=== PATIENT | female | born 1950 | race Caucasian/White ===

== ENCOUNTER 2017-06-04 12:52 | Emergency (ER) | payer OTHER, BC ==
[~2017-06-04] VITALS: Ht 157.5 cm; Wt 59.0 kg
--- NOTE | ~2017-06-04 | EKG ---
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
[~2017-06-04 12:52] MED LIST: ESTROGEN/METHYL1 TA1 PO; HTN MED; LISINOPRIL5 MG PO; LORAZEPAM 1 MG T1 M1 PO; NAPROSYN500 MG PO; NORVASC 5 MG TAB5 MG PO; NORVASC PO; OXYBUTYNIN 5 MG5 M2 PO; PERCOCET 5-3251 EACH PO; PREDNISONE 20 M20 M1 PO; SANCTURA XR60 M1 PO; SEROQUEL 100 M100 M2 PER TUBE; SEROQUEL400 MG PO; SYNTHROID PO; SYNTHROID100 MCG PO; VISTARIL 25 MG25 M1 PO; XANAX XR1 MG PO; XANAX1 MG PO; [UNRECOGNIZED DRUG - OTHER] PO
[2017-06-04] MEDS ORDERED: FLEXERIL PO (14:37)
[2017-06-04 21:39] VITALS: BP 133/82
== END 2017-06-04 14:40 | disposition home or self-care (01) ==
LOC: ER 12:52
DX: M25.551 Pain in right hip (principal); M79.651 Pain in right thigh; I10 Essential (primary) hypertension; M79.7 Fibromyalgia; E03.9 Hypothyroidism, unspecified; F31.9 Bipolar disorder, unspecified; K58.9 Irritable bowel syndrome, unspecified; Z90.710 Acquired absence of both cervix and uterus; Z91.5 Personal history of self-harm; Z88.8 Allergy status to other drugs, medicaments and biological substances

== ENCOUNTER 2020-03-25 11:47 | Emergency (ER) | payer OTHER, BC ==
[~2020-03-25] VITALS: Ht 157.5 cm; Wt 70.3 kg
[~2020-03-25 11:47] MED LIST changes: +FLEXERIL PO
[2020-03-25] MEDS ORDERED: OXYBUTYNIN CHLO10 MG PO (11:57)
[2020-03-25] MEDS ORDERED: LINZESS290 MCG PO (11:57)
[2020-03-25] MEDS ORDERED: ALPRAZOLAM1 MG PO (11:58)
[2020-03-25] MEDS ORDERED: QUETIAPINE FUM400 MG PO (11:58)
[2020-03-25] MEDS ORDERED: SYNTHROID50 MCG PO (11:58)
[2020-03-25] MEDS ORDERED: MELOXICAM15 MG PO (11:59)
[2020-03-25] MEDS ORDERED: TROSPIUM CHLORI60 MG PO (11:59)
[2020-03-25 13:26] LABS: ABSOLUTE NEUTROPHILS 10.2 thou/uL (1.4-8.2); BASOPHILS 0.1 % (0.0-2.0); EOSINOPHILS 1.7 % (0.0-3.0); HEMATOCRIT 41.3 % (37.0-47.0); HEMOGLOBIN 13.5 gm/dL (12.0-15.0); LYMPHOCYTES 11.1 % (24.0-44.0); MCH 31.3 pg (26.0-34.0); MCHC 32.6 g/dL (28.0-37.0); MCV 96.1 fL (80.0-100.0); PLATELET COUNT 253 thou/uL (150-400); POLYS 80.1 % (36.0-66.0); RDW 13.5 % (10.5-14.5); WBC 12.7 thou/uL (4.0-11.0)
[2020-03-25 13:27] LABS: URINE BILIRUBIN NEGATIVE (Negative); URINE BLOOD TRACE (Negative); URINE CLARITY CLEAR; URINE COLOR YELLOW; URINE GLUCOSE-RANDOM* NEGATIVE (Negative); URINE KETONES NEGATIVE (Negative); URINE LEUKOCYTES-REFLEX TRACE (Negative); URINE NITRITE-REFLEX NEGATIVE (Negative); URINE PROTEIN (DIPSTICK) NEGATIVE (Negative); URINE SPECIFIC GRAVITY >= 1.030 (1.005-1.035); URINE UROBILINOGEN 0.2 E.U./dl (0.2-1.0)
[2020-03-25 13:30] LABS: ANION GAP 9 mmol/L (7-16); BUN 16 mg/dL (7-18); CALCIUM 8.3 mg/dL (8.5-10.1); CHLORIDE 105 mmol/L (98-107); CO2 26 mmol/L (21-32); GLUCOSE 103 mg/dL (74-106); POTASSIUM 4.2 mmol/L (3.5-5.1); SODIUM 140 mmol/L (136-145)
[2020-03-25 13:40] LABS: ALBUMIN 3.2 g/dL (3.4-5.0); LIPASE 257 U/L (73-393); SGOT 19 U/L (15-37); SGPT 15 U/L (30-65); TOTAL BILIRUBIN 0.4 mg/dL (0.2-1.0); TOTAL PROTEIN 6.7 g/dL (6.4-8.2); TROPONIN-I <0.06 ng/mL (<0.06)
[2020-03-25] MEDS ORDERED: ONDANSETRON HCL4 M2 PO (14:16)
[2020-03-25] MEDS ORDERED: ZPAK PO (14:16)
[2020-03-25] MEDS ORDERED: NORCO 5-325 TA1 EAC2 PO (14:16)
[2020-03-25 14:48] VITALS: BP 111/63
--- NOTE | 2020-03-27 07:44 | EKG ---
[facility] [place] [address] ELECTROCARDIOGRAM REPORT Name: ELLA KHAN Room #: [facility]#: [id number] Admission: 03/25/20 Attend Phys: Discharge: 03/25/20 Date of : 54 Report #: [id number] THIS REPORT FOR: cc: FAM - Family physician unknown FAM - Family physician unknown Stanislav Conklin MD [facility] THIS REPORT FOR: //name// [facility] ED Test Date: 2020-03-25 Test Time: 13:19:48 Pat Name: ELLA KHAN Department: Room: Gender: Client Success Director: no : 1950 Requested By: Delores Altamirano Order Number: [id number] MD: Stanislav Conklin Measurements Intervals [place] Rate: 81 P: 59 [place]: 141 QRS: -11 QRSD: 104 T: 12 QT: 374 QTc: 434 Interpretive Statements Sinus rhythm Normal tracing Compared to ECG 06/04/2017 13:02:01 No significant changes Electronically Signed On 03-27-2020 7:44:22 BLANKET WEAVER by Stanislav Conklin [email or web address] <ELECTRONICALLY SIGNED> By: Stanislav Conklin MD, FAC 03/27/20 0744 1319 Stanislav Conklin MD, FAC /EPI
== END 2020-03-25 14:59 | disposition home or self-care (01) ==
LOC: ER 11:47
PROVIDERS: Physician Assistant
DX: J18.9 Pneumonia, unspecified organism (principal); Z20.828 Contact with and (suspected) exposure to other viral communicable diseases; R11.2 Nausea with vomiting, unspecified; R19.7 Diarrhea, unspecified; I10 Essential (primary) hypertension; M79.7 Fibromyalgia; E03.9 Hypothyroidism, unspecified; F31.9 Bipolar disorder, unspecified; Z90.711 Acquired absence of uterus with remaining cervical stump; Z79.899 Other long term (current) drug therapy; Z88.5 Allergy status to narcotic agent; Z88.8 Allergy status to other drugs, medicaments and biological substances

== ENCOUNTER 2020-04-05 21:49 | Emergency (ER) | payer OTHER, BC ==
[~2020-04-05] VITALS: Ht 157.5 cm; Wt 70.3 kg
[~2020-04-05 21:49] MED LIST changes: +ALPRAZOLAM1 MG PO; +LINZESS290 MCG PO; +MELOXICAM15 MG PO; +NORCO 5-325 TA1 EAC2 PO; +ONDANSETRON HCL4 M2 PO; +OXYBUTYNIN CHLO10 MG PO; +QUETIAPINE FUM400 MG PO; +SYNTHROID50 MCG PO; +TROSPIUM CHLORI60 MG PO; +ZPAK PO
[2020-04-05] MEDS ORDERED: PRINIVIL10 MG PO (22:11)
[2020-04-05 22:47] LABS: URINE BILIRUBIN NEGATIVE (Negative); URINE BLOOD 1+ (Negative); URINE CLARITY CLEAR; URINE COLOR YELLOW; URINE GLUCOSE-RANDOM* NEGATIVE (Negative); URINE KETONES NEGATIVE (Negative); URINE LEUKOCYTES-REFLEX NEGATIVE (Negative); URINE NITRITE-REFLEX NEGATIVE (Negative); URINE PROTEIN (DIPSTICK) NEGATIVE (Negative); URINE SPECIFIC GRAVITY <= 1.005 (1.005-1.035); URINE UROBILINOGEN 0.2 E.U./dl (0.2-1.0)
[2020-04-05 23:29] LABS: LYMPHOCYTES 45.5 % (24.0-44.0)
[2020-04-05 23:30] LABS: ABSOLUTE NEUTROPHILS 3.7 thou/uL (1.4-8.2); BASOPHILS 0.6 % (0.0-2.0); EOSINOPHILS 3.6 % (0.0-3.0); HEMATOCRIT 41.7 % (37.0-47.0); HEMOGLOBIN 13.9 gm/dL (12.0-15.0); MCH 31.8 pg (26.0-34.0); MCHC 33.3 g/dL (28.0-37.0); MCV 95.5 fL (80.0-100.0); MONOCYTES 7.1 % (1.0-8.0); PLATELET COUNT 338 thou/uL (150-400); POLYS 43.2 % (36.0-66.0); RBC 4.37 mil/uL (4.20-5.00); RDW 13.8 % (10.5-14.5); WBC 8.6 thou/uL (4.0-11.0)
[2020-04-05 23:43] LABS: BACTERIA-REFLEX 1-9 Few /HPF (None Seen); CASTS None Seen /LPF (None Seen); CRYSTALS None Seen /LPF (None Seen); MUCUS 0-3 Light strn/LPF (None Seen); SQUAMOUS 0-3 Few /LPF (0-3); URINE RBC 3-10 Few /HPF (0-2); URINE WBC-REFLEX 0-5 Rare /HPF (0-5)
[2020-04-05 23:44] LABS: ALBUMIN 3.7 g/dL (3.4-5.0); BUN 12 mg/dL (7-18); CALCIUM 9.1 mg/dL (8.5-10.1); CHLORIDE 105 mmol/L (98-107); DIRECT BILIRUBIN < 0.1 mg/dL (<0.1-0.2); GLUCOSE 89 mg/dL (74-106); POTASSIUM 3.7 mmol/L (3.5-5.1); SGOT 19 U/L (15-37); SGPT 17 U/L (30-65); SODIUM 144 mmol/L (136-145); TOTAL BILIRUBIN 0.2 mg/dL (0.2-1.0); TOTAL PROTEIN 7.5 g/dL (6.4-8.2)
[2020-04-05 23:49] LABS: ANION GAP 12 mmol/L (7-16); CO2 27 mmol/L (21-32)
[2020-04-06 01:22] VITALS: BP 142/70
== END 2020-04-06 01:23 | disposition home or self-care (01) ==
LOC: ER 21:49
PROVIDERS: Emergency Medicine
DX: M79.10 Myalgia, unspecified site (principal); R05 Cough; R06.00 Dyspnea, unspecified; Z20.828 Contact with and (suspected) exposure to other viral communicable diseases; R19.7 Diarrhea, unspecified; I10 Essential (primary) hypertension; E03.9 Hypothyroidism, unspecified; F31.9 Bipolar disorder, unspecified; F17.210 Nicotine dependence, cigarettes, uncomplicated; Z90.711 Acquired absence of uterus with remaining cervical stump; Z79.899 Other long term (current) drug therapy; Z88.5 Allergy status to narcotic agent; Z88.8 Allergy status to other drugs, medicaments and biological substances

== ENCOUNTER 2020-05-13 19:54 | Emergency (ER) | payer OTHER, BC ==
[~2020-05-13] VITALS: Ht 157.5 cm; Wt 69.8 kg
[~2020-05-13 19:54] MED LIST changes: +PRINIVIL10 MG PO
[2020-05-13 20:01] VITALS: BP 137/56
[2020-05-13] MEDS ORDERED: CYCLOBENZAPRINE5 MG PO (20:39)
[2020-05-13] MEDS ORDERED: NORCO 7.5-3251 EACH PO (20:39)
== END 2020-05-13 20:50 | disposition home or self-care (01) ==
LOC: ER 19:54
DX: M54.5 Low back pain (principal); R10.31 Right lower quadrant pain; I10 Essential (primary) hypertension; E03.9 Hypothyroidism, unspecified; M79.7 Fibromyalgia; Z90.710 Acquired absence of both cervix and uterus; F31.9 Bipolar disorder, unspecified; Z79.899 Other long term (current) drug therapy; Z88.5 Allergy status to narcotic agent; Z88.8 Allergy status to other drugs, medicaments and biological substances; F17.210 Nicotine dependence, cigarettes, uncomplicated; V43.52XA Car driver injured in collision with other type car in traffic accident, initial encounter; Y93.I9 Activity, other involving external motion; Y92.488 Other paved roadways as the place of occurrence of the external cause; Y99.8 Other external cause status

== ENCOUNTER → 2020-06-23 | Outpatient (CLI) | payer OTHER ==
[~2020-06-23] MED LIST changes: +ALPRAZOLAM ER2 MG PO; +CYCLOBENZAPRINE5 MG PO; +NORCO 7.5-3251 EACH PO
== END ==
LOC: LAB 09:08
PROVIDERS: ATTEND Student in an Organized Health Care Education/Training Program
DX: Z01.812 Encounter for preprocedural laboratory examination (principal); Z20.822 Contact with and (suspected) exposure to COVID-19

== ENCOUNTER → 2020-06-28 | Outpatient (CLI) | payer OTHER, BC ==
[~2020-06-28] VITALS: Ht 157.5 cm; Wt 69.9 kg
[~2020-06-28] MED LIST changes: +NORCO5 PO
[2020-06-28 09:28] LABS: CREATININE 0.8 mg/dL (0.6-1.0)
[2020-06-28 09:51] VITALS: BP 105/88
== END ==
LOC: MRI 08:27
PROVIDERS: ATTEND Anesthesiology Pain Medicine
DX: S76.011A Strain of muscle, fascia and tendon of right hip, initial encounter (principal); M16.11 Unilateral primary osteoarthritis, right hip; M51.37 Other intervertebral disc degeneration, lumbosacral region; M47.816 Spondylosis without myelopathy or radiculopathy, lumbar region; M48.061 Spinal stenosis, lumbar region without neurogenic claudication; X58.XXXA Exposure to other specified factors, initial encounter; Y93.89 Activity, other specified; Y92.89 Other specified places as the place of occurrence of the external cause; Y99.8 Other external cause status
CPT/HCPCS: 62110; 62900; 70005

== ENCOUNTER 2020-06-29 11:47 | Emergency (ER) | payer OTHER, BC ==
[~2020-06-29] VITALS: Ht 162.6 cm; Wt 69.8 kg
[~2020-06-29 11:47] MED LIST changes: -NORCO5 PO
[2020-06-29] MEDS ORDERED: NORCO5 PO (13:09)
[2020-06-29 13:47] VITALS: BP 137/79
== END 2020-06-29 14:02 | disposition home or self-care (01) ==
LOC: ER 11:47
DX: M54.5 Low back pain (principal); I10 Essential (primary) hypertension; E03.9 Hypothyroidism, unspecified; F17.210 Nicotine dependence, cigarettes, uncomplicated; Z90.710 Acquired absence of both cervix and uterus; Z90.49 Acquired absence of other specified parts of digestive tract; Z79.899 Other long term (current) drug therapy; Z88.5 Allergy status to narcotic agent; Z88.8 Allergy status to other drugs, medicaments and biological substances

== ENCOUNTER 2021-03-27 17:59 | Emergency (ER) | payer OTHER, BC ==
[~2021-03-27] VITALS: Ht 157.5 cm; Wt 64.4 kg
[~2021-03-27 17:59] MED LIST changes: +NORCO5 PO
[2021-03-27 18:21] VITALS: BP 144/81
[2021-03-27] MEDS ORDERED: NEURONTIN 400400 M1 PO (18:25)
[2021-03-27] MEDS ORDERED: TESSALON PERLE100 M1 PO (18:56)
== END 2021-03-27 18:55 | disposition home or self-care (01) ==
LOC: ER 17:59
PROVIDERS: Physician Assistant
DX: R05.9 Cough, unspecified (principal); Z20.822 Contact with and (suspected) exposure to COVID-19; I10 Essential (primary) hypertension; E03.9 Hypothyroidism, unspecified; F32.9 Major depressive disorder, single episode, unspecified; F41.9 Anxiety disorder, unspecified; F17.210 Nicotine dependence, cigarettes, uncomplicated; Z90.49 Acquired absence of other specified parts of digestive tract; Z90.710 Acquired absence of both cervix and uterus; Z79.899 Other long term (current) drug therapy; Z88.5 Allergy status to narcotic agent; Z88.8 Allergy status to other drugs, medicaments and biological substances

== ENCOUNTER → 2021-04-24 | Outpatient (CLI) | payer OTHER, BC ==
[~2021-04-24] MED LIST changes: +NEURONTIN 400400 M1 PO; +TESSALON PERLE100 M1 PO
== END ==
LOC: BC 11:10
PROVIDERS: ATTEND Family Medicine
DX: Z12.31 Encounter for screening mammogram for malignant neoplasm of breast (principal); N64.89 Other specified disorders of breast; N63.21 Unspecified lump in the left breast, upper outer quadrant

== ENCOUNTER → 2021-06-19 | Outpatient (CLI) | payer OTHER, BC | LOC: ULTRA 06-18 08:31 | PROVIDERS: ATTEND Family Medicine | DX: N60.02 Solitary cyst of left breast (principal); N63.20 Unspecified lump in the left breast, unspecified quadrant ==

== ENCOUNTER 2021-06-30 17:50 | Emergency (ER) | payer OTHER, BC ==
[~2021-06-30] VITALS: Ht 157.5 cm; Wt 65.8 kg
[~2021-06-30 17:50] MED LIST changes: -PRINIVIL10 MG PO
[2021-06-30] MEDS ORDERED: ZPAK PO (19:15)
[2021-06-30 19:48] VITALS: BP 91/35
== END 2021-06-30 19:50 | disposition home or self-care (01) ==
LOC: ER 17:50
DX: J18.9 Pneumonia, unspecified organism (principal); Z20.822 Contact with and (suspected) exposure to COVID-19; I10 Essential (primary) hypertension; M79.7 Fibromyalgia; E03.9 Hypothyroidism, unspecified; F32.9 Major depressive disorder, single episode, unspecified; F41.9 Anxiety disorder, unspecified; F17.210 Nicotine dependence, cigarettes, uncomplicated; Z90.710 Acquired absence of both cervix and uterus; Z90.49 Acquired absence of other specified parts of digestive tract; Z79.891 Long term (current) use of opiate analgesic; Z79.899 Other long term (current) drug therapy; Z88.5 Allergy status to narcotic agent; Z88.8 Allergy status to other drugs, medicaments and biological substances

== ENCOUNTER 2021-07-03 22:38 | Inpatient (IN) | payer OTHER, BC ==
[~2021-07-03] VITALS: Ht 162.6 cm; Wt 80.7 kg
--- NOTE | ~2021-07-03 | EMS ---
[address] [address] EMS Patient Care Report Name: ELLA KHAN Room #: 170-8 ADM IN M.R.#: [id number] Admission: 07/04/21 Attend Phys: Jem Goldstein Discharge: Date of : 54 Report #: [id number] THIS REPORT FOR: //name// Report Transmitted: 07/04/2021 08:28 EMS Care Summary [place], [place] Incident [id number] @ 07/03/2021 22:02 Incident Location [address] [address] [place] [address] Patient ELLA KHAN Female, 71 Years 1950 Patient Address [id number] [place] [address] Patient History Hypertension (HTN),Pneumonia, Patient Allergies No known allergies, Chief Complaint AMS Disposition Transported Lights/[place] Dispatch Reason Sick Person Transported To [facility] Narrative M41 DISPATCHED TO A SICK PERSON. M41 AOS WITH P36 AND FOUND A PT LYING ON HER COUCH. PT WAS ALERT TO VERBA STIMULI. PT LIVES WITH HER SON. HE STATES THAT SHE WAS IN THE HOSPITAL A FEW DAYS AGO AND DISCHARGED WITH PNEMONIA. HE STATES THAT OVER THE PAST FEW DAYS [address] [address] EMS Patient Care Report Name: ELLA KHAN Room #: 170-8 ADM IN M.R.#: [id number] Admission: 07/04/21 Attend Phys: Jem Goldstein Discharge: Date of : 54 Report #: [id number] AT HOME AND TREATMENT WITH ANTIBIOTICS THAT SHE HAS NOT GOTTEN ANY BETTER AND THAT SHE IS WEAK. HE STATES THAT SHE IS ALTERED AND NOT LIKE HERSELF. HE STATES THAT SHE DID REPORT A FALL YESTERDAY. HE STATES THAT SHE IS NOT ON BLOOD THINNERS, HE DENIES THAT SHE LOST CONSCIOUSNESS. PT MOVED TO A STAIRCHAIR AND TO THE COT. VITALS OBTAINED. PT PLACED ON O2 NC. 4 LEAD OBTAINED. IV ACCESS OBTAINED. M[address] RUFF. EN ROUTE PT REMAINED STABLE. REPORT GIVEN TO MICHAEL PASCAL. SIGNATURES OBTAINED. TRANSFER OF CARE TOOK PLACE. M41 IN SERVICE. NAA ALVES COLLEGE ATHLETIC DIRECTOR Initial Vitals @22:17P: 115,SpO2: 81, @22:16P: 116,BP: 106/61, @22:26P: 116,CO: 6,SpO2: 93, @22:17BP: 112/61, @22:26P: 113,BP: 108/65,CO: 7,SpO2: 94, @22:25P: 116,R: 24,BP: 106/66,Pain: 0/10,GCS: 13,Temp: 98.9F,Glucose: 109,CO: 0,SpO2: 83,Revised Trauma: 12, @22:30P: 116,R: 24,BP: 111/60,Pain: 0/10,GCS: 13,CO: 3,SpO2: 97,Revised Trauma: 12, Assessments @22:12MENTAL:Confused,SKIN:Pale,HEENT:Head/Face: No Abnormalities,Neck/Airway: No Abnormalities,LUNG SOUNDS:General: No Abnormalities,ABDOMEN:General: No Abnormalities,PELVIS//GI:No Abnormalities,EXTREMITIES:Capillary Refill: Right Upper: 3 Sec,Left Arm: No Abnormalities,Right Arm: No Abnormalities,Left Leg: No Abnormalities,Right Leg: No Abnormalities,PULSE:Radial: 2+ Normal,NEURO:No Abnormalities, Impression Altered Mental Status Procedures @22:27 IV Therapy - Saline Lock 8cc (20 ga) Site: Antecubital-Left Response: UnchangedSucceeded @22:12 ALS Assessment Response: UnchangedSucceeded [facility] [address] [place] [address] EMS Patient Care Report Name: ERINELLA Room #: 170-8 ADM IN M.R.#: [id number] Admission: 07/04/21 Attend Phys: Jem Goldstein Discharge: Date of : 54 Report #: [id number] @22:28 3-Lead ECG Response: UnchangedSucceeded @22:16 Oxygen FlowRate: 6 Device: Nasal Cannula (NC) Response: ImprovedSucceeded Timeline 21:59,Call Received 21:59,Dispatch Notified 22:02,Dispatched 22:02,En Route 22:09,On Scene 22:12,At Patient 22:12,ALS Assessment,Response: UnchangedSucceeded, 22:16,BP: 106/61 M,PULSE: 116,RR: R,SPO2: Ox,ETCO2: ,BG: ,PAIN: ,GCS: , 22:16,Oxygen FlowRate: 6 Device: Nasal Cannula (NC) Response: ImprovedSucceeded, 22:17,BP: 112/61 M,PULSE: ,RR: R,SPO2: Ox,ETCO2: ,BG: ,PAIN: ,GCS: , 22:17,BP: / M,PULSE: 115,RR: R,SPO2: 81 Ox,ETCO2: ,BG: ,PAIN: ,GCS: , 22:25,BP: 106/66 M,PULSE: 116,RR: 24 R,SPO2: 83 Ox,ETCO2: ,B,PAIN: 0,GCS: 13, 22:26,BP: / M,PULSE: 116,RR: R,SPO2: 93 Ox,ETCO2: ,BG: ,PAIN: ,GCS: , 22:26,BP: 108/65 M,PULSE: 113,RR: R,SPO2: 94 Ox,ETCO2: ,BG: ,PAIN: ,GCS: , 22:27,IV Therapy - Saline Lock 8cc 20 ga Site: Antecubital-Left,Response: UnchangedSucceeded, 22:28,3-Lead ECG,Response: UnchangedSucceeded, 22:29,Depart Scene 22:30,BP: 111/60 M,PULSE: 116,RR: 24 R,SPO2: 97 Ox,ETCO2: ,BG: ,PAIN: 0,GCS: 13, 22:32,At Destination 00:30,Call Closed Disclaimer v1.1 Copyright 2021 [employer] This EMS Care Summary contains data elements from the applicable legal record (which may be displayed differently). It is designed to provide pertinent information for the following purposes: continuity of care, clinical quality, and state data reporting. The complete legal record is available to ED staff and administrators of the receiving hospital in [employer]'s Patient Tracker. All data is provided "as is."
--- NOTE | ~2021-07-03 | EMS ---
[facility] [address] [place] [address] EMS Patient Care Report Name: ELLA KHAN Room #: 240-P ADM IN M.R.#: [id number] Admission: 07/04/21 Attend Phys: Jem Goldstein Discharge: Date of : 54 Report #: [id number] THIS REPORT FOR: //name// Report Transmitted: 07/06/2021 09:31 EMS Care Summary [place], [place]/[facility] Incident [id number] @ 07/03/2021 22:02 Incident Location [address] [place] [address] Patient ELLA KHAN Female, 71 Years 1950 Patient Address [id number] [place] [address] Patient History Hypertension (HTN),Pneumonia, Patient Allergies No known allergies, Chief Complaint AMS Disposition Transported Lights/[place] Dispatch Reason Sick Person Transported To [facility] Narrative M41 DISPATCHED TO A SICK PERSON. M41 AOS WITH P36 AND FOUND A PT LYING ON HER COUCH. PT WAS ALERT TO VERBA STIMULI. PT LIVES WITH HER SON. HE STATES THAT SHE WAS IN THE HOSPITAL A FEW DAYS AGO AND DISCHARGED WITH PNEMONIA. HE STATES THAT OVER THE PAST FEW DAYS [facility] [address] [place] [address] EMS Patient Care Report Name: ELLA KHAN Room #: 240-P ADM IN M.R.#: [id number] Admission: 07/04/21 Attend Phys: Jem Goldstein Discharge: Date of : 54 Report #: [id number] AT HOME AND TREATMENT WITH ANTIBIOTICS THAT SHE HAS NOT GOTTEN ANY BETTER AND THAT SHE IS WEAK. HE STATES THAT SHE IS ALTERED AND NOT LIKE HERSELF. HE STATES THAT SHE DID REPORT A FALL YESTERDAY. HE STATES THAT SHE IS NOT ON BLOOD THINNERS, HE DENIES THAT SHE LOST CONSCIOUSNESS. PT MOVED TO A STAIRCHAIR AND TO THE COT. VITALS OBTAINED. PT PLACED ON O2 NC. 4 LEAD OBTAINED. IV ACCESS OBTAINED. M[address] RUFF. EN ROUTE PT REMAINED STABLE. REPORT GIVEN TO MICHAEL PASCAL. SIGNATURES OBTAINED. TRANSFER OF CARE TOOK PLACE. M41 IN SERVICE. NAA ALVES ENVIRONMENTAL CONSULTANT Initial Vitals @22:17P: 115,SpO2: 81, @22:16P: 116,BP: 106/61, @22:26P: 116,CO: 6,SpO2: 93, @22:17BP: 112/61, @22:26P: 113,BP: 108/65,CO: 7,SpO2: 94, @22:25P: 116,R: 24,BP: 106/66,Pain: 0/10,GCS: 13,Temp: 98.9F,Glucose: 109,CO: 0,SpO2: 83,Revised Trauma: 12, @22:30P: 116,R: 24,BP: 111/60,Pain: 0/10,GCS: 13,CO: 3,SpO2: 97,Revised Trauma: 12, Assessments @22:12MENTAL:Confused,SKIN:Pale,HEENT:Head/Face: No Abnormalities,Neck/Airway: No Abnormalities,LUNG SOUNDS:General: No Abnormalities,ABDOMEN:General: No Abnormalities,PELVIS//GI:No Abnormalities,EXTREMITIES:Capillary Refill: Right Upper: 3 Sec,Left Arm: No Abnormalities,Right Arm: No Abnormalities,Left Leg: No Abnormalities,Right Leg: No Abnormalities,PULSE:Radial: 2+ Normal,NEURO:No Abnormalities, Impression Altered Mental Status Procedures @22:27 IV Therapy - Saline Lock 8cc (20 ga) Site: Antecubital-Left Response: UnchangedSucceeded @22:12 ALS Assessment Response: UnchangedSucceeded [facility] [address] [place] [address] EMS Patient Care Report Name: ERINELLA Room #: 240-P ADM IN M.R.#: [id number] Admission: 07/04/21 Attend Phys: Jem Goldstein Discharge: Date of : 54 Report #: [id number] @22:28 3-Lead ECG Response: UnchangedSucceeded @22:16 Oxygen FlowRate: 6 Device: Nasal Cannula (NC) Response: ImprovedSucceeded Timeline 21:59,Call Received 21:59,Dispatch Notified 22:02,Dispatched 22:02,En Route 22:09,On Scene 22:12,At Patient 22:12,ALS Assessment,Response: UnchangedSucceeded, 22:16,BP: 106/61 M,PULSE: 116,RR: R,SPO2: Ox,ETCO2: ,BG: ,PAIN: ,GCS: , 22:16,Oxygen FlowRate: 6 Device: Nasal Cannula (NC) Response: ImprovedSucceeded, 22:17,BP: 112/61 M,PULSE: ,RR: R,SPO2: Ox,ETCO2: ,BG: ,PAIN: ,GCS: , 22:17,BP: / M,PULSE: 115,RR: R,SPO2: 81 Ox,ETCO2: ,BG: ,PAIN: ,GCS: , 22:25,BP: 106/66 M,PULSE: 116,RR: 24 R,SPO2: 83 Ox,ETCO2: ,B,PAIN: 0,GCS: 13, 22:26,BP: / M,PULSE: 116,RR: R,SPO2: 93 Ox,ETCO2: ,BG: ,PAIN: ,GCS: , 22:26,BP: 108/65 M,PULSE: 113,RR: R,SPO2: 94 Ox,ETCO2: ,BG: ,PAIN: ,GCS: , 22:27,IV Therapy - Saline Lock 8cc 20 ga Site: Antecubital-Left,Response: UnchangedSucceeded, 22:28,3-Lead ECG,Response: UnchangedSucceeded, 22:29,Depart Scene 22:30,BP: 111/60 M,PULSE: 116,RR: 24 R,SPO2: 97 Ox,ETCO2: ,BG: ,PAIN: 0,GCS: 13, 22:32,At Destination 00:30,Call Closed Disclaimer v1.1 Copyright 2021 [employer] This EMS Care Summary contains data elements from the applicable legal record (which may be displayed differently). It is designed to provide pertinent information for the following purposes: continuity of care, clinical quality, and state data reporting. The complete legal record is available to ED staff and administrators of the receiving hospital in [employer]'s Patient Tracker. All data is provided "as is."
[2021-07-03 22:40] VITALS: BP 106/52
[2021-07-03 23:16] LABS: HEMATOCRIT 30.4 % (37.0-47.0); HEMOGLOBIN 10.2 gm/dL (12.0-15.0); MCH 30.6 pg (26.0-34.0); MCHC 33.5 g/dL (28.0-37.0); MCV 91.4 fL (80.0-100.0); PLATELET COUNT 360 thou/uL (150-400); RBC 3.32 mil/uL (4.20-5.00); RDW 13.8 % (10.5-14.5); WBC 30.7 thou/uL (4.0-11.0)
[2021-07-03 23:35] LABS: ALBUMIN 1.9 g/dL (3.4-5.0); CALCIUM 7.9 mg/dL (8.5-10.1); CREATININE 1.1 mg/dL (0.6-1.0); TOTAL BILIRUBIN 0.7 mg/dL (0.2-1.0)
[2021-07-03 23:43] LABS: POTASSIUM 2.8 mmol/L (3.5-5.1)
[2021-07-04] VITALS (44 sets, daily range): BP systolic 86–142; BP diastolic 37–74
[2021-07-04 00:18] LABS: BE(vivo) 2.7 mmol/L (-2 to +3); HCO3 26.7 mmol/L (22.0-26.0); PCO2 38.6 mmHg (35.0-45.0); PO2 135.9 mmHg (80.0-100.0); pH 7.458 (7.360-7.450); sO2 98.8 % (92.0-98.0)
[2021-07-04 00:44] LABS: URINE BILIRUBIN NEGATIVE (Negative); URINE BLOOD 2+ (Negative); URINE CLARITY SL CLOUDY; URINE COLOR YELLOW; URINE GLUCOSE-RANDOM* NEGATIVE (Negative); URINE KETONES 1+ (Negative); URINE LEUKOCYTES-REFLEX NEGATIVE (Negative); URINE NITRITE-REFLEX NEGATIVE (Negative); URINE PROTEIN (DIPSTICK) 2+ (Negative); URINE SPECIFIC GRAVITY 1.025 (1.005-1.035); URINE UROBILINOGEN 0.2 E.U./dl (0.2-1.0)
[2021-07-04 00:49] LABS: ABSOLUTE NEUTROPHILS 27.6 thou/uL (1.4-8.2); ANISOCYTOSIS 1+; PLATELET ESTIMATE NORMAL; POIKILOCYTOSIS 1+
[2021-07-04 00:56] LABS: BACTERIA-REFLEX 1-9 Few /HPF (None Seen); CELLULAR CASTS 4-10 Moderate /LPF (None Seen); CRYSTALS None Seen /LPF (None Seen); HYALINE CASTS 0-3 Few /LPF (None Seen); MUCUS 4-6 Moderate strn/LPF (None Seen); SQUAMOUS 0-3 Few /LPF (0-3); URINE RBC 3-10 Few /HPF (NONE SEEN); URINE WBC-REFLEX 0-5 Rare /HPF (0-5)
[2021-07-04 04:05] LABS: APTT 21.5 Seconds (24.5-32.8); INR 0.9; PROTIME 9.9 Seconds (10.5-12.1)
[2021-07-04 06:13] LABS: CALCIUM 7.1 mg/dL (8.5-10.1); CREATININE 0.9 mg/dL (0.6-1.0); MAGNESIUM 2.4 mg/dL (1.8-2.4)
[2021-07-04 06:25] LABS: POTASSIUM 3.9 mmol/L (3.5-5.1)
--- NOTE | 2021-07-04 07:18 | EKG ---
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: OBEY : 1950 Requested By: Franc Pritchett Order Number: [id number] MD: Zaid Cowan Measurements Intervals [place] Rate: 110 P: 57 MS: 126 QRS: -5 QRSD: 83 T: -7 QT: 290 QTc: 393 Interpretive Statements Sinus tachycardia Probable left atrial enlargement Compared to ECG 03/25/2020 13:19:48 Sinus rhythm no longer present Electronically Signed On 07-04-2021 7:18:17 WORLD DESIGNER by Zaid Cowan [email or web address] <ELECTRONICALLY SIGNED> By: Zaid Cowan MD, [facility] 07/04/21 0718 2317 2317 Zaid Cowan MD, FACC /EPI
--- NOTE | 2021-07-04 08:29 | NUR ---
END OF SHIFT SUMMARY: PT B/P REMAINED VERY SOFT THROUGHOUT THE NIGHT. ORDER WAS OBATINED FOR LEVOPHED AND MEDICATION WAS ADMINISTERED PER ORDER. MEDICATION WAS TITRATED PER ORDER AND CHARTED UNDER MED TITRATION TAB. PT ONLY WOKE UP ONE TIME WHILE ON BIPAP AND STATED THAT HER NOSE ITCHED AND THEN WENT BACK TO SLEEP. PT REMAINED LETHARGIC ALL NIGHT, BUT IS ABLE TO FOLLOW COMMANDS WHEN TASKS REPEATED MULTIPLE TIMES. PT DID REMAIN ON THE BIPAP ALL NIGHT. TEMPERATURE DID BREAK, HOWEVER PT REMAINED TO FEEL VERY WARM TO TOUCH. CALL LIGHT REMAINED IN REACH ALL NIGHT. PT WAS VERY CLOSELY MONITORED ALL NIGHT.
--- NOTE | 2021-07-04 09:36 | NUR ---
NO DPOA LISTED ON PATIENTS CHART. DUE TO PATIENT NEUROLOGICAL STATUS, HER NEXT OF KIN (VALENTÍN JONES, SON) WAS CONTACTED REGARDING CONSENT TO PICC LINE FOR THE PATIENT. REASONING WAS EXPLAINED AND ALL QUESTIONS AND CONCERNS WERE ADDRESSED. DOUBLE VERIFICATION WAS OBTAINED BY A SECOND NURSE, MARK RODRIGUEZ.
--- NOTE | 2021-07-04 11:49 | NUR ---
PICC PLACED FOR SEPSIS AND LEVOPHED.......PT IN THE ER
[2021-07-04] MEDS ORDERED: XANAX1 MG PO (16:57)
[2021-07-04] MEDS ORDERED: CENTRUM SILVER1 EAC6 PO (17:01)
[2021-07-04] MEDS ORDERED: NORVASC5 MG PO (17:02)
[2021-07-04] MEDS ORDERED: MIRALAX119 GM PO (17:04)
[2021-07-04] MEDS ORDERED: SENNA PLUS TAB1 EACH PO (17:04)
[2021-07-05] VITALS (111 sets, daily range): BP systolic 75–141; BP diastolic 18–109
[2021-07-05 03:51] LABS: HEMATOCRIT 34.4 % (37.0-47.0); HEMOGLOBIN 11.6 gm/dL (12.0-15.0); MCH 31.4 pg (26.0-34.0); MCHC 33.6 g/dL (28.0-37.0); MCV 93.4 fL (80.0-100.0); PLATELET COUNT 313 thou/uL (150-400); RBC 3.69 mil/uL (4.20-5.00); RDW 13.6 % (10.5-14.5); WBC 29.8 thou/uL (4.0-11.0)
[2021-07-05 04:53] LABS: ALBUMIN 1.3 g/dL (3.4-5.0); CALCIUM 7.8 mg/dL (8.5-10.1); CREATININE 0.7 mg/dL (0.6-1.0); POTASSIUM 3.2 mmol/L (3.5-5.1); TOTAL BILIRUBIN 0.2 mg/dL (0.2-1.0); TOTAL PROTEIN 5.8 g/dL (6.4-8.2)
[2021-07-05 05:09] LABS: BE(vivo) -0.4 mmol/L (-2 to +3); PCO2 38.3 mmHg (35.0-45.0); PO2 73.2 mmHg (80.0-100.0); pH 7.415 (7.360-7.450)
[2021-07-05 06:44] LABS: ABSOLUTE NEUTROPHILS 29.2 thou/uL (1.4-8.2)
[2021-07-05 06:45] LABS: PLATELET ESTIMATE NORMAL; POLYCHROMASIA 1+
--- NOTE | 2021-07-05 07:45 | HC ---
[facility] [place] [address] CONSULTATION Name: ELLA KHAN Room #: 240-P ADM IN M.R.#: [id number] Admission: 07/04/21 Attend Phys: Jem Goldstein Discharge: Date of : 54 Report #: [id number] THIS REPORT FOR: cc: Amrit Rosales MD, Nicholas MD Barry, Joseph W. MD ~ DATE OF SERVICE: 07/04/2021 INFECTIOUS DISEASE CONSULTATION ATTENDING PHYSICIAN: Dr. Goldstein. REASON FOR EVALUATION: Pneumonitis, complicated by respiratory failure, complicated by sepsis with multiorgan dysfunction. HISTORY OF PRESENT ILLNESS: Chart reviewed. The patient examined. This is a 71-year-old woman with fairly significant medical history who presented to the Emergency Room earlier this week with complaints of cough and dyspnea. She was confirmed to have a lobar pneumonia, although due to absence of significant illness was discharged home on azithromycin. She returned subsequent to a fall, was found to be hypoxic, placed on supplemental oxygen, initially nasal cannula, ultimately on BiPAP. She was found to be febrile and encephalopathic as well with disorientation. She did undergo evaluation for possible infectious causes. She was found to have procalcitonin elevated at 5.53. Coronavirus testing was negative. Urinalysis showed 0-5 white cells. A followup chest x-ray showed progressive right upper lobe consolidation. She was empirically started on combination therapy with vancomycin and Zosyn. Discussed with the Emergency Room nurse, had been minimally responsive; however, he was surprised to find her she was awakened and was conversant. She was aware of her current situation. ALLERGIES: LISTED TO ADAM JOHNSTON. CURRENT MEDICATIONS: Include vancomycin, famotidine, Zosyn, hydrocortisone, ipratropium, albuterol inhaler. She is on norepinephrine as well. She is maintained on BiPAP at 35%. PAST MEDICAL HISTORY: As described above, hypertension, fibromyalgia, hypothyroidism, bladder dysfunction, bipolar disease. SOCIAL HISTORY: Former smoker. No ethanol, no illicit drug use. FAMILY HISTORY: Noncontributory. REVIEW OF SYSTEMS: Very cursory, difficult for her to speak with the BiPAP in place. It is not clear if she had a great deal of details of history. [facility] [address] [place] [address] CONSULTATION Name: ELLA KHAN Room #: 240-P [facility] IN M.R.#: [id number] Admission: 07/04/21 Attend Phys: Jem Goldstein Discharge: Date of : 54 Report #: [id number] PHYSICAL EXAMINATION: VITAL SIGNS: Temperature 97.9, pulse 77, respirations 28, blood pressure 134/68. SKIN: Warm, dry, no rashes. HEENT: Normocephalic. Extraocular muscles intact. BiPAP in place. NECK: Supple. LUNGS: Bilateral scattered coarse breath sounds. HEART: Regular. I do not appreciate a murmur. ABDOMEN: Somewhat distended, mildly firm, nontender. EXTREMITIES: No cyanosis. GENITOURINARY AND RECTAL: Deferred. LABORATORY DATA: Blood cultures sterile thus far. Most recent electrolytes, sodium 135, potassium 3.9, chloride 99, bicarbonate is 21, anion gap of 15, BUN and creatinine 29 and 0.9. Estimated GFR 62. Lactic acid 0.6, is down from 1.2. TSH 1.083. Urinalysis, 0-5 white cells. CBC, WBC 30.7, H and 10.2 and 30.4, platelets of 360, 13% bands. ABGs: pH 7.458, pCO2 of 36, pO2 135.9, FiO2 of 50%. She is currently on 35%. Procalcitonin elevated at 5.53. CRP 478.4. ASSESSMENT AND PLAN: Severe pneumonitis complicated by respiratory failure, radiographically is more indicative of a bacterial etiology. Agree with broad-spectrum antimicrobial therapy. Continue vancomycin and Zosyn. She remains quite tenuous at this point. Continue supplemental oxygen as required. She seems to be tolerating the BiPAP. We will check CT of the chest to exclude an occult process. Continue to monitor expectantly. <ELECTRONICALLY SIGNED> By: William Echevarria MD 07/05/21 0745 1301 31 William Echevarria MD /nt
--- NOTE | 2021-07-05 08:03 | EKG ---
[place] [address] [place] [address] ELECTROCARDIOGRAM REPORT Name: ELLA KHAN Room #: 240-P ADM IN M.R.#: [id number] Admission: 07/04/21 Attend Phys: Jem Goldstein Discharge: Date of : 54 Report #: [id number] [facility] Test Date: 2021-07-05 Test Time: 01:24:20 Pat Name: ELLA KHAN Department: Room: 240 P Gender: F Manager Software: GABRIELE : 1950 Requested By: Crow Jett Order Number: [id number] MD: Stanislav Conklin Measurements Intervals [place] Rate: 67 P: 87 CT: 148 QRS: 20 QRSD: 87 T: 44 QT: 410 QTc: 433 Interpretive Statements Sinus rhythm No significant abnormality Baseline wander in lead(s) V1 Compared to ECG 07/03/2021 23:17:38 Sinus tachycardia no longer present Electronically Signed On 07-05-2021 8:02:36 MELTING OPERATOR by Stanislav Conklin [email or web address] <ELECTRONICALLY SIGNED> By: Stanislav Conklin MD, [facility] 07/05/21801 0124 0124 Stanislav Conklin MD, FAC /EPI
--- NOTE | 2021-07-05 08:11 | NUR ---
0044- pts SPB in 80s and levo was started at initial rate of 0.1 0100- levo decreased to .07 0110- pt woke up d/t chest pain and experienced rhythm changes, possibly a block. HR went from 60 to 90. Strip was printed out and showed to Dr. Jett. Dr. Jett ordered an EKG and labs. BP stable requiring minimal levophed. Pt awake and alert x4. 0545- troponin came back elevated and Nelida Lange NP notified and ordered to consult cardiology 0600- cardiology Dr. Fuentes was notified of chest pain, EKG changes, and shown rhythm strips. Ordered routine ECHO for 07/05/21, does not think pt is having a cardiac ischemic event. Ordered to continue pts diet. 0110- pt woke up complaining of chest pain.
--- NOTE | 2021-07-05 08:21 | NUR ---
0000- pt mildly diaphoretic and temp 94.2. Dr. Jett notified with no new orders.
--- NOTE | 2021-07-05 09:30 | NUR ---
71-year-old female, came to ED via EMS for complaints of increased shortness of air since patient lacey was last here in the ED on 06/30/21, was discharged home on PO ABX. history of HTN, hypothyroidism, IBS, fibromyalgia, anxiety, and depression. HPI obtained from chart review. reported she had a fall today. Has had worsening difficulty breathing. 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 she is currently on BiPAP at 35%, her blood pressures in the 80s (86/44) and will start on Levophed. Discussed during los with the attending physician. Pulmonary consulted for possible bronch. Cm visited with her son Stephon #W [phone] via phone call. Intro to case management and discharge planning. Prior to hospital lacey lives at home in an apartment, on the 2nd floor with her son Stephon, has an elevator then she only has 7 steps to do to get to her home, if elevator is broken then there is 25 more steps to their apartment. She is independent when she is feeling ok, she does smoke cigarettes. No home o2 needed. She has walker since her back surgery and had home health after surgery. no skilled rehab in the past. she manages her own medication. She drives maybe one time per week per son Stephon. Her son has been staying with her for over a year now, he from [facility]. Son Stephon is retired, she is my only family, we are only 18 years apart. I am retired from the per Stephon. Education on DPOA, home health related to her weakness, and that can do that while she is here if they would like. Patient is still requiring use of bipap, no anticipated discharge, possible will require some home services at [place]. Prem consulted and oa paperwork completed and on the chart.
--- NOTE | 2021-07-05 12:12 | NUR ---
DPOA CONSULT [id number] WAS COMPLETED BY THIS [employer]. cOPY PLACE IN CHART.
--- NOTE | 2021-07-05 13:04 | NUR ---
I have reviewed the documentation by DONTAE ABDUL from 07/05/21 to 07/05/21 and I concur with it. JAMESON MONTEJO
[2021-07-05 15:08] LABS: HAV IgM AB (ANTI-HAV IgM) Negative (Negative); HEPATITIS B SURFACE AG Negative (Negative)
[2021-07-06] VITALS (86 sets, daily range): BP systolic 78–144; BP diastolic 32–82
[2021-07-06 05:18] LABS: HEMATOCRIT 31.3 % (37.0-47.0); HEMOGLOBIN 10.2 gm/dL (12.0-15.0); MCH 30.5 pg (26.0-34.0); MCHC 32.7 g/dL (28.0-37.0); MCV 93.3 fL (80.0-100.0); RBC 3.35 mil/uL (4.20-5.00); RDW 14.2 % (10.5-14.5); WBC 36.6 thou/uL (4.0-11.0)
[2021-07-06 05:22] LABS: PLATELET COUNT 453 thou/uL (150-400)
[2021-07-06 05:42] LABS: CALCIUM 8.1 mg/dL (8.5-10.1); CREATININE 0.8 mg/dL (0.6-1.0); POTASSIUM 3.8 mmol/L (3.5-5.1)
[2021-07-06 09:03] LABS: HEPATITIS C VIRUS AB <0.1
[2021-07-06 09:15] LABS: ABSOLUTE NEUTROPHILS 34.4 thou/uL (1.4-8.2); ANISOCYTOSIS 1+; PLATELET ESTIMATE NORMAL
[2021-07-06] MEDS ORDERED: WELLBUTRIN SR150 MG PO (09:23)
--- NOTE | 2021-07-06 10:05 | NUR ---
0900: DISCUSSED POC WITH DR. ANDERSON AND INTERDISCIPLINARY TEAM. PT TOLERATING RA, SPO2 IN MID TO HIGH 90S. PT CONTINUES TO C/O SOB AND DYSPNEA DESPITE BEING OFF SUPPLEMENTAL OXYGEN. LIKELY WILL REMAIN GIVEN LUNG MASS. DIRECTOR OF CARDIOLOGY SERVICE LINE AT BEDSIDE NOW. NO NEW ORDERS FROM CARDIOLOGY THIS AM. TITRATING LEVOPHED PRESSURES TOLERATE. RN NOTED NEW CONSULT FOR HEM/ONC THIS AM.
--- NOTE | 2021-07-06 10:09 | 2DMMODE ---
[facility] [place] [address] 2 D/M-MODE ECHOCARDIOGRAM Name: ELLA KHAN Room #: 240-P ADM IN M.R.#: [id number] Admission: 07/04/21 Attend Phys: Jem Goldstein Discharge: Date of : 54 Report #: [id number] THIS REPORT FOR: cc: Amrit Rosales MD, Nicholas MD Santiago, Patrick MD [facility] ~ APPROVED REPORT Study performed: 07/06/2021 08:59:20 EXAM: Comprehensive 2D, Doppler, and color-flow Echocardiogram Patient Location: In-Patient Room #: 240 Status: routine BSA: 1.83 HR: 58 bpm BP: 124/64 mmHg Rhythm: NSR Other Information Study Quality: Adequate Indications Sepsis Dyspnea Hypertension/HDD 2D Dimensions IVSd: 8.61 (7-11mm) LVOT Diam: 19.69 (18-24mm) LVDd: 52.59 mm PWd: 7.36 (7-11mm) Ascending Ao: 23.92 (22-36mm) LVDs: 38.24 (25-40mm) Left Atrium: 38.04 (27-40mm) Aortic Root: 24.78 mm Volumes Left Atrial Volume (Systole) Single Plane 4CH: 26.31 mL Single Plane 2CH: 32.65 mL Biplane LA Volume: 38.00 mL LA ESV Index: 21.00 mL/m2 Aortic Valve AoV Peak Yeyo.: 1.27 m/s AO Peak Gr.: 6.57 mmHg LVOT Max P.78 mmHg LVOT Max V: 0.97 m/s [facility] [address] [place] [address] 2 D/M-MODE ECHOCARDIOGRAM Name: LASHAWNDONNIEELLA Room #: 240-P [facility] IN .R.#: [id number] Admission: 07/04/21 Attend Phys: Jem Muro Jul Discharge: Date of : 54 Report #: [id number] ANDER Vmax: 2.33 cm2 Mitral Valve E/A Ratio: 1.0 MV Decel. Time: 3513.77 ms MV E Max Yeyo.: 0.51 m/s MV A Yeyo.: 0.51 m/s MV PHT: 1018.99 ms IVRT: 92.27 ms Pulmonary Valve PV Peak Yeyo.: 0.97 m/s PV Peak Gr.: 3.79 mmHg Tricuspid Valve TR Peak Yeyo.: 2.81 m/s RAP Estimate: 7.00 mmHg TR Peak Gr.: 31.65 mmHg RVSP: 38.00 mmHg Left Ventricle The left ventricle is normal size. There is normal LV segmental wall motion. There is normal left ventricular wall thickness. Left ventricular systolic function is normal. The left ventricular ejection fraction is within the normal range. LVEF is 50-55%. Transmitral Doppler flow pattern suggests impaired LV relaxation. Right Ventricle The right ventricle is normal size. Right ventricle is mildly hypokinetic. Atria The left atrium size is normal. The right atrium size is normal. Aortic Valve The aortic valve is normal in structure. No aortic regurgitation is present. There is no aortic valvular stenosis. Mitral Valve The mitral valve is normal in structure. Mild mitral regurgitation. No evidence of mitral valve stenosis. Tricuspid Valve The tricuspid valve is normal in structure. Mild to moderate tricuspid regurgitation. PAP 38 mmHg Pulmonic Valve [facility] [address] [place] [address] 2 D/M-MODE ECHOCARDIOGRAM Name: [facility] Room #: 240-P [facility] IN M.R.#: [id number] Admission: 07/04/21 Attend Phys: Jem Hogan Discharge: Date of : 54 Report #: [id number] The pulmonary valve is normal in structure. There is no pulmonic valvular regurgitation. Great Vessels The aortic root is normal in size. IVC is normal in size and collapses >50% with inspiration. Pericardium There is no pericardial effusion. There is no pleural effusion. <Conclusion> Normal left ventricle size/wall thickness Ejection fraction 55% Normal right ventricle size/function Normal atrial size Normal aortic valve structure and function Mild mitral valve insufficiency Mild to moderate tricuspid valve insufficiency Pulmonary systolic pressure estimated 38 mmHg No pericardial effusion Normal aortic root size. <ELECTRONICALLY SIGNED> By: Zaid Cowan MD, FAC 07/06/21 1009 100 100 Zaid Cowan MD, [facility] /INF
--- NOTE | 2021-07-06 15:29 | NUR ---
Discussed during los with the attending physician. Loren is on room air. Getting an echo today. No anticipated discharge over the weekend. Will continue following as needed. Might required home health [place] for weakness. Referral to be sent for hh when medically stable for discharge.
--- NOTE | 2021-07-06 16:25 | NUR ---
1625: PT'S SON AT BEDSIDE FOR VISIT, UPDATED HIM ON CURRENT POC.
--- NOTE | 2021-07-06 16:28 | NUR ---
I have reviewed the documentation by DUGLAS ANDRE from 07/06/21 to 07/06/21 and I concur with it. TRAE CARBAJAL, PT, DPT
--- NOTE | 2021-07-06 16:51 | NUR ---
1650: RN DISCUSSED PT'S REQUEST FOR CHANGING PAIN REGIMEN WITH DR. ALBRECHT. NOTIFIED HIM PT ASKED TO SWITCH FROM MORPHINE TO NORCO IT LASTS LONGER AND IS WHAT SHE TAKES AT HOME. PT NOW OFF PRESSORS. LAST BP 136/54 (80). DR. ALBRECHT TO PLACE TRANSFER ORDERS FOR THE FLOOR AND UPDATE PAIN MEDS. PT AND SON WHO IS AT BEDSIDE UPDATED.
--- NOTE | 2021-07-06 18:21 | NUR ---
1900: PT IS PROGRESSING TOWARDS GOALS THIS SHIFT EVIDENCED BY ABILITY TO MAINTAIN NORMAL SPO2 WHILE ON ROOM AIR AND DISCONTINUATION OF PRESSORS. PT WITH TRANSFER ORDERS FOR M/S TELE ONCE BED BECOMES AVAILABLE. PT CONTINUES TO HAVE DYSPNEA/COUGH THROUGHOUT SHIFT DUE TO LUNG MASS.
--- NOTE | 2021-07-06 18:37 | NUR ---
1835: REPORT PROVIDED TO MICHAEL SAGASTUME ON CCU.
--- NOTE | 2021-07-06 19:02 | NUR ---
1900: PT TRANSFERRED TO CCU ROOM 214 AT THIS TIME VIA BED ALONG WITH HER BELONGINGS. TELEMETRY CONNECTED. CALL LIGHT WITHIN REACH. RN NOTIFIED MICHAEL SAGASTUME OF PT'S ARRIVAL. RN CALLED PT'S SON, VALENTÍN, AT THIS TIME AND UPDATED HIM ON NEW ROOM ASSIGNMENT.
--- NOTE | 2021-07-07 03:49 | NUR ---
RECEIEVED PATIENT AT 1900H.ASSESSMENT DONE CHARTED.MEDS GIVEN PER JUL.CONFIRMED WITH ANTHROPOLOGY PROFESSOR ON DUTY THE DOSE OF QUETIAPINE BEFORE GIVING.VANCOMYCIN TRHOUGH LEVEL AND OTHER BLOOD WORKS SENT TO LAB AT 0230AM AND RESULT WAS FOLLOWED UP.ALL NEEDS ATTENDED.TO CONTINOUSLY MONITOR.
[2021-07-07 04:54] LABS: HEMATOCRIT 26.9 % (37.0-47.0); HEMOGLOBIN 8.7 gm/dL (12.0-15.0); MCH 30.5 pg (26.0-34.0); MCHC 32.4 g/dL (28.0-37.0); MCV 94.1 fL (80.0-100.0); PLATELET COUNT 430 thou/uL (150-400); RBC 2.86 mil/uL (4.20-5.00); RDW 14.1 % (10.5-14.5); WBC 26.6 thou/uL (4.0-11.0)
[2021-07-07 05:42] LABS: ALBUMIN 1.2 g/dL (3.4-5.0); CALCIUM 7.4 mg/dL (8.5-10.1); CREATININE 0.7 mg/dL (0.6-1.0); MAGNESIUM 1.7 mg/dL (1.8-2.4); POTASSIUM 3.4 mmol/L (3.5-5.1); TOTAL BILIRUBIN 0.3 mg/dL (0.2-1.0)
[2021-07-07 06:09] VITALS: BP 135/69
[2021-07-07 07:42] LABS: ABSOLUTE NEUTROPHILS 23.1 thou/uL (1.4-8.2); ANISOCYTOSIS SLIGHT; METAMYELOCYTES 1 %
[2021-07-07 07:50] VITALS: BP 117/63
[2021-07-07 11:30] VITALS: BP 139/76
[2021-07-07 15:30] VITALS: BP 128/89
[2021-07-07 20:11] VITALS: BP 130/69
[2021-07-08 04:00] VITALS: BP 122/59
--- NOTE | 2021-07-08 05:17 | NUR ---
ASSESSMENTS CHARTED, MEDS CHARTED GIVEN. PATIENT VERY UPSET AND TRYING TO DEAL WITH DIAGNOSIS SHE RECEIVED TODAY. ISSUES AMOUNG SIBLINGS AND EXTENDED FAMILY. PATIENT PULLED OUT PICC LINE DURING NIGHT. RIGHT FOREARM IV STARTED. C/O BACK PAIN TOWARD START OF SHIFT. PATIENT WANTING TO TALK TO DR. MENDOZA FOR MORE INFORMATION. CONTINUE CARES.
[2021-07-08 07:40] LABS: ALBUMIN 1.5 g/dL (3.4-5.0); CALCIUM 8.2 mg/dL (8.5-10.1); CREATININE 0.8 mg/dL (0.6-1.0); PHOSPHORUS 4.1 mg/dL (2.6-4.7); POTASSIUM 3.1 mmol/L (3.5-5.1)
[2021-07-08 07:50] VITALS: BP 151/79
[2021-07-08 16:05] VITALS: BP 148/70
[2021-07-08 19:30] VITALS: BP 147/64
[2021-07-09 03:40] VITALS: BP 129/69
[2021-07-09 04:31] LABS: HEMOGLOBIN 8.7 gm/dL (12.0-15.0); MCH 31.1 pg (26.0-34.0); MCHC 33.3 g/dL (28.0-37.0); MCV 93.2 fL (80.0-100.0); RBC 2.79 mil/uL (4.20-5.00); WBC 17.1 thou/uL (4.0-11.0)
[2021-07-09 04:59] LABS: ALBUMIN 1.3 g/dL (3.4-5.0); CALCIUM 7.5 mg/dL (8.5-10.1); CREATININE 0.6 mg/dL (0.6-1.0)
[2021-07-09 05:01] LABS: POTASSIUM 2.7 mmol/L (3.5-5.1)
--- NOTE | 2021-07-09 05:22 | NUR ---
ASSESSMENTS CHARTED, MEDS CHARTED GIVEN. RESTING IN BED DURING SHIFT. UP WITH STANDBY ASSIST TO BATHROOM. C/O COUGHING SO MUCH HER CHEST, RIBS AND ABDOMEN HURT. REQUESTED PAIN PILL AND ALPRAZOLAM AT BEDTIME. SLEPT WELL DURING THE NIGHT. MORNING LAB SHOW CRITICAL POTASSIUM OF 2.7. LOW ALBUMIN LEVEL OF 1.3. PATIENT KEEPS ASKING HOW LONG IT TAKES TO GET OVER PNEUMONIA AND I KEEP REMINDING HER THAT EACH PERSON IS DIFFERENT. SHE IS REALLY WANTING TO TALK TO THIS MORNING. CONTINUE CARES.
[2021-07-09 07:52] VITALS: BP 152/59
[2021-07-09 08:27] LABS: % SATURATION 11 % (20-39); IRON 17 ug/dL (50-170); TIBC 150 ug/dL (250-450)
[2021-07-09 08:51] LABS: ABSOLUTE RETIC COUNT 0.034 10^6/uL; OBSERVED RETIC COUNT 1.24 % (0.6-2.6)
[2021-07-09] MEDS ORDERED: AMOX TR-K CLV1 EAC4 PO (09:14)
[2021-07-09] MEDS ORDERED: NORCO5 PO (09:15)
[2021-07-09] MEDS ORDERED: GUAIFENESIN DM S5 ML PO (09:15)
[2021-07-09 09:30] LABS: FOLIC ACID 14.2 ng/mL (8.6-58.9)
[2021-07-09 12:25] VITALS: BP 119/47
--- NOTE | 2021-07-09 14:18 | NUR ---
CHART REVIEWED AND DISCUSSED WITH CARE TEAM. CM SPOKE TO PT ABOUT CHOICES FOR REHAB AND SNF SERVICES. PT REFUSED STATING SHE WAS GOING HOME AND NOT GOING TO REHAB. MAKE UP MAN PT LIVED WITH PTS SON VALENTÍN. CM SPOKE TO VALENTÍN TO INFORM PT IS REFUSING DISCHARGE TO EVERYTHING BUT HOME. PTS SON VOICED PT HAS HAD SEVERAL FALLS AT HOME MAKE UP MAN AND HE REALLY WANTS PT TO GO TO GET REHAB. HE INFORMED HE PICKED HER UP ONCE FROM FALLING AND PULLED A GROIN MUSCLE. CM SPOKE TO PT AGAIN. SHE CONTINUES TO REFUSE SNF/REHAB. CM SPOKE TO PT ABOUT HH. SHE VOICED "I DON'T WANT THEM EITHER THEY JUST COME TO THE HOUSE FOR 5 MIN, SIT ON THEIR ASS, AND LEAVE". CM EDUCATED ON HH SERVICES. PT CONTINUED TO REFUSE. INSTRUCTED PT IF CHANGED HER MIND ABOUT HH SHE CAN OBTAIN THROUGH HER PCP. PT VOICED UNDERSTANDING. CM CALLED PTS SON BACK TO INFORM. LEFT MESSAGE. PT INFORMED CM SHE JUST TALKED TO HER SON AND HE WAS AT THE GYM AND ON HIS WAY TO PICK HER UP AFTER THE GYM. NURSING AND PHYSICIAN AWARE OF DC PLANS. NO FURTHER CM INTERVENTIONS INDICATED AT THIS TIME.
[2021-07-09 14:24] VITALS: BP 119/47
[2021-07-09 14:52] VITALS: BP 119/47
--- NOTE | 2021-07-09 15:46 | NUR ---
GAVE PT DISCHARGE INSTRUCTIONS AND EDUCATION. ALSO PROVIDED NAMES AND OFFICE PHONE NUMBERS OF PHYSICIAN CONSULTS FOR FOLLOW-UP APPOINTMENTS. PT EXPRESSES UNDERSTANDING OF INFORMATION PROVIDED. HER PIV WAS REMOVED AND BANDAGE PLACED. WAITING ON SON FOR PICK-UP OF PATIENT WHERE SHE WILL BE DISCHARGED TO HOME WITH HOME HEALTH SERVICES. PT STATES SHE WILL BEGRUDGINGLY USE A WALKER BECAUSE SHE UNDERSTANDS THE IMPORTANCE OF IT FOR HER AMBULATORY SAFETY AT HOME. THE PT IS APPRECIATIVE OF THE ATTENTION AND CARE SHE HAS RECEIVED DURING HER STAY.
--- NOTE | 2021-07-09 16:56 | NUR ---
I have reviewed the documentation by DUGLAS ANDRE from 07/09/21 to 07/09/21 and I concur with it. TRAE CARBAJAL, PT, DPT
[2021-07-09 17:01] VITALS: BP 119/47
== END 2021-07-09 17:57 | disposition home health service (06) | DRG 871 ==
LOC: ER 22:38 → EROBS 07-04 01:21 → ICU 07-04 01:21 → 2N 07-06 19:57
PROVIDERS: Emergency Medicine; Internal Medicine Hematology & Oncology; Nurse Practitioner Family; Pediatrics; Specialist; ADMIT Hospitalist; ATTEND Hospitalist
PROC: 05HY33Z Insertion of Infusion Device into Upper Vein, Percutaneous Approach (ICD-10-PCS; principal; 2021-07-04)
PROC: 5A09357 Assistance with Respiratory Ventilation, Less than 24 Consecutive Hours, Continuous Positive Airway Pressure (ICD-10-PCS; principal; 2021-07-04)
PROC: 5A0935A Assistance with Respiratory Ventilation, Less than 24 Consecutive Hours, High Flow/Velocity Cannula (ICD-10-PCS; 2021-07-05)
DX: A41.89 Other specified sepsis (principal); J18.9 Pneumonia, unspecified organism; R65.21 Severe sepsis with septic shock; J96.01 Acute respiratory failure with hypoxia; G92.8 Other toxic encephalopathy; E46 Unspecified protein-calorie malnutrition; I10 Essential (primary) hypertension; E03.9 Hypothyroidism, unspecified; F32.9 Major depressive disorder, single episode, unspecified; F41.9 Anxiety disorder, unspecified; R53.81 Other malaise; E87.6 Hypokalemia; M79.7 Fibromyalgia; K58.9 Irritable bowel syndrome, unspecified; Z20.822 Contact with and (suspected) exposure to COVID-19; R91.8 Other nonspecific abnormal finding of lung field; D64.9 Anemia, unspecified; Z90.710 Acquired absence of both cervix and uterus; Z90.49 Acquired absence of other specified parts of digestive tract; Z88.6 Allergy status to analgesic agent; Z68.30 Body mass index [BMI] 30.0-30.9, adult; Z88.8 Allergy status to other drugs, medicaments and biological substances; Z87.891 Personal history of nicotine dependence
CPT/HCPCS: 10078; 10081; 27000